=== PATIENT | male | born 1960 | race Caucasian/White ===

== ENCOUNTER 2024-03-08 18:57 | Emergency (ER) | payer BC ==
[2024-03-08 19:09] VITALS: TEMP 98.3
--- NOTE | 2024-03-08 19:18 | ED ---
Upper Extremity HPI - General Chief Complaint: Extremity Injury, Upper Stated Complaint: Trauma R hand Time Seen by Provider: 03/08/24 19:11 Source: patient, RN notes reviewed Mode of arrival: ambulatory Limitations: no limitations - History of Present Illness Initial Comments: This is a 63-year-old male who presents to the emergency department for an in jury to the right hand and wrist. Patient states that he was using an engine hoist to move a diesel engine, and one of the legs on the hoist was unsteady and caused the hoist to fall onto his right hand. He has 2 lacerations noted. Tetanus vaccine is up to date. Pain is localized to the right hand and wrist. Unable to move all of the fingers due to the pain and swelling. MD Complaint: Injury to:: right, wrist, hand - Related Data Previous Rx's Medication Instructions Recorded Ibuprofen [Motrin] 800 mg PO Q8H PRN #30 tab 03/08/24 Allergies Allergy/AdvReac Type Severity Reaction Status Date / Time No Known Allergies Allergy Verified 03/08/24 19:09 Review of Systems ROS Statement: Those systems with pertinent positive or pertinent negative responses have been documented in the HPI. ROS Other: All systems not noted in ROS Statement are negative. Past Medical History Past Medical History: Hyperlipidemia, Hypertension Additional Past Medical History / Comment(s): chronic knee pain, gout Past Surgical History: Orthopedic Surgery Past Psychological History: No Psychological Hx Reported Smoking Status: Never smoker Past Alcohol Use History: Occasional General Exam Limitations: no limitations General appearance: alert, in no apparent distress Head exam: Present: atraumatic, normocephalic, normal inspection Respiratory exam: Present: normal lung sounds bilaterally. Absent: respiratory distress, wheezes, rales, rhonchi, stridor Cardiovascular Exam: Present: regular rate, normal rhythm, normal heart sounds. Absent: systolic murmur, diastolic murmur, rubs, gallop, clicks Extremities exam: Present: other (Significant diffuse swelling to the right hand, particularly the area involving the palm. Range of motion of fingers 1 through 3 limited by pain and swelling.) Neurological exam: Present: alert, oriented X3, CN II-XII intact Psychiatric exam: Present: normal affect, normal mood Skin exam: Present: other (Laceration over the right thumb and to the volar aspect of the right palm.) Course Vital Signs 03/08/24 03/08/24 19:04 21:16 Temperature 98.3 F Pulse Rate 70 63 Respiratory 22 18 Rate Blood Pressure 167/82 159/82 O2 Sat by Pulse 97 100 Oximetry Procedures - Laceration Laceration #1 Consent Obtained: verbal consent Indication: laceration Site: hand Size (cm): 3 Description: linear Depth: simple, single layer Anesthetic Used: lidocaine 1% Anesthesia Technique: local infiltration Amount (mls): 4 Pre-repair: wound explored, irrigated extensively Type of Sutures: nylon Size of Sutures: 4-0 Number of Sutures: 3 Technique: simple, interrupted Laceration #2 Consent Obtained: verbal consent Indication: laceration Site: other (Right thumb) Size (cm): 4 Description: linear Depth: simple, single layer Anesthetic Used: lidocaine 1% Anesthesia Technique: local infiltration Amount (mls): 4 Pre-repair: wound explored, irrigated extensively Type of Sutures: nylon Size of Sutures: 4-0 Number of Sutures: 4 Technique: simple, interrupted Medical Decision Making - Medical Decision Making This is a 63 year old male who presents to the emergency department for an injury to the right hand. Was pt. sent in by a medical professional or institution? @ -No Did you speak to anyone other than the patient for history? @ -No Did you review nursing and triage notes? @ -Yes, and I agree, it is accurate with regards to the patient's symptoms. Were old charts reviewed? @ -No Differential Diagnosis? @ -Differential Musculoskeletal: Muscular strain, contusion, ligament sprain, fracture, arthritis, septic arthritis, bursitis, cellulitis, muscle spasm, nerve compression, DVT, arterial occlusion, herpes zoster, electrolyte abnormality, tumor.... This is not meant to be in all inclusive list EKG interpreted by me (3pts min.)? @ -Not obtained X-rays interpreted by me (1pt min.)? @ -X-ray of the right hand and wrist obtained. My interpretation identifies no acute fractures. CT interpreted by me (1pt min.)? @ -Not obtained U/S interpreted by me (1pt. min.)? @ -Not obtained What testing was considered but not performed? (CT, X-rays, U/S, labs)? Why? @ -None What meds were considered but not given? Why? @ -None Did you discuss the management of the patient with other professionals? @ -No Did you reconcile home meds? @ -No Was smoking cessation discussed for >3mins.? @ -No Was critical care preformed (if so, how long)? @ -No Were there social determinants of health that impacted care today? How? (Homelessness, low income, unemployed, alcoholism, drug addiction, transportation, low edu. Level, literacy, decrease access to med. care, [facility], rehab)? @ -No Was there de-escalation of care discussed even if they declined? (Discuss DNR or withdrawal of care, Hospice)? @ -No What co-morbidities impacted this encounter? (DM, HTN, Smoking, COPD, CAD, Cancer, CVA, Hep., AIDS, mental health diagnosis, sleep apnea, morbid obesity)? @ -None Was patient admitted / discharged? @ -Discharged. X-ray of the right hand and wrist obtained revealing prominent soft tissue swelling without any acute fractures. He had 2 lacerations, 1 on the palm of the hand and 1 on the right thumb that were both repaired with sutures. Tetanus vaccine is already up-to-date. Pain was controlled in the emergency department. He is advised to return in 7 to 10 days for suture removal. Prescription for ibuprofen provided. Also advised ice and elevation. Discussed with the patient that while there are not currently any identifiable fractures, sometimes this can be masked by the swelling. Advised that he may need repeat x-rays in the next week depending on how he progresses, to reevaluate for any fractures. Patient expresses understanding and was discharged home in stable condition. Case discussed with ED attending Dr. Colon. Return precautions reviewed in depth, the patient is instructed to return to the emergency department with any new, worsening, or concerning symptoms. Patient verbalized understanding. Undiagnosed new problem with uncertain prognosis? @ -None Drug Therapy requiring intensive monitoring for toxicity (Heparin, Nitro, Insulin, Cardizem)? @ -None Were any procedures done? @ -Laceration repair with sutures Diagnosis/symptom? @ -Crush injury to right hand, lacerations Acute, or Chronic, or Acute on Chronic? @ -Acute Uncomplicated (without systemic symptoms) or Complicated (systemic symptoms)? @ -Uncomplicated Side effects of treatment? @ -None Exacerbation, Progression, or Severe Exacerbation] @ -Not applicable Poses a threat to life or bodily function? @ -May limit use of the right hand for the mean time. - Radiology Data Radiology results: report reviewed, image reviewed Disposition Clinical Impression: Crushing injury of right hand, Laceration of hand Disposition: HOME SELF-CARE Instructions (If sedation given, give patient instructions): Care For Your Stitches (ED), Crush Injury (ED) Additional Instructions: Return to the emergency department with any new, worsening, or concerning symptoms and in 7-10 days for removal of the stitches. Alternate with ibuprofen and Tylenol as needed for pain relief. Apply ice and elevate the arm when possible. You may need repeat x-rays in about a week to further evaluate for any possible fractures that are not currently identifiable due to the swelling. Prescriptions: Ibuprofen [Motrin] 800 mg PO Q8H PRN #30 tab PRN Reason: Pain Is patient prescribed a controlled substance at d/c from ED?: No Referrals: Nonstaff,Physician [Primary Care Provider] - 1-2 days Time of Disposition: 21:02
[2024-03-08] MEDS: KETOROLAC 15 MG/ML 1 ML VIAL IVP STA ×2 (19:37→21:12)
[2024-03-08] MEDS: HYDROmorphone 1 MG/ML 1 ML SYRINGE IVP STA ×2 (19:38→21:12)
[2024-03-08] MEDS: LIDOCAINE 1% INJ 10MG/ML (20 ML MDV) SQ ONE (19:39)
--- NOTE | 2024-03-08 19:53 | XR ---
EXAMINATION TYPE: XR wrist complete 4 views RT, XR hand complete 3 views RT DATE OF EXAM: 03/08/2024 COMPARISON: NONE HISTORY: 63-year-old male pain and swelling after injury FINDINGS: Wrist: The radiocarpal and distal radial ulnar joint as well as mid carpal compartment appear intact. Mild d egenerative spurring first CMC joint. Corticated appearing ossific density dorsal carpus likely seque la of old injury. There is marked soft tissue swelling of the thenar eminence and radial aspect of th e wrist. No acute fracture, subluxation, dislocation seen. Hand: Soft tissue swelling mentioned above. No acute fracture, subluxation, dislocation seen. IMPRESSION (wrist and hand): Marked radial sided soft tissue swelling. No underlying acute osseous abnormality seen. [facility], , 03/08/2024 7:51 PM
[2024-03-08] MEDS: traMADol 50 MG STARTER PACK 3 TAB BTL PO STA (21:11)
[2024-03-08 21:17] VITALS: BP 159/82; PULSE 63; RESP 18
== END 2024-03-08 21:31 | disposition home or self-care (01) ==
LOC: EC 18:57
CPT/HCPCS: 12002; 96374; 96375; 96376; 99284

== ENCOUNTER 2024-04-29 13:28 | Observation (INO) | payer BC ==
[2024-04-29 14:34] LABS: Basophils % (A) 0 %; Eosinophils # (A) 0.2 k/uL (0-0.7); Eosinophils % (A) 2 %; HCT 31.8 % (39.0-53.0); HGB 10.7 gm/dL (13.0-17.5); Lymphocytes # (A) 0.5 k/uL (1.0-4.8); Lymphocytes % (A) 5 %; MCH 30.7 pg (25.0-35.0); MCHC 33.6 g/dL (31.0-37.0); MCV 91.5 fL (80.0-100.0); Mean Platelet Volume 8.5; Monocytes # (A) 0.6 k/uL (0-1.0); Monocytes % (A) 6 %; Neutrophils # (A) 8.8 k/uL (1.3-7.7); Neutrophils % (A) 86 %; Platelet Count 329 k/uL (150-450); RBC 3.48 m/uL (4.30-5.90); RDW 13.7 % (11.5-15.5); WBC 10.3 k/uL (3.8-10.6)
--- NOTE | 2024-04-29 14:42 | ED ---
Extremity Problem HPI - General Source: patient, EMS, RN notes reviewed Mode of arrival: EMS Limitations: physical limitation <Norman Ureña - Last Filed: 04/29/24 14:38> - General Source: patient, EMS, RN notes reviewed, old records reviewed Mode of arrival: EMS Limitations: physical limitation - History of Present Illness MD Complaint: extremity pain, extremity swelling -: hour(s) Location: right, knee History of Same: Yes -: Yes myalgia, Yes arthralgia Radiation: proximal, distal Severity scale (1-10): 10 Quality: stabbing Consistency: constant Improves with: nothing Worsens with: nothing Associated Symptoms: denies other symptoms <Willis Dubose - Last Filed: 05/05/24 22:01> - General Chief complaint: Extremity Problem,Nontraumatic Stated complaint: Poss Infection-Post OP Time Seen by Provider: 04/29/24 13:33 - History of Present Illness Initial comments: 63-year-old male presents to the emergency department with chief complaint of right leg pain, swelling and redness. Patient states that he had right total knee replacement done at [facility] last . He states he has been having subjective fevers, chills, cold sweats. He has had increasing leg pain, swelling or redness. He initially thought he was trying to wean off his medication that was causing his symptoms but symptoms worsen he has been followed by visiting nurses which are concerned about the increasing redness. He has a sealed dressing over the area. Patient states has become more difficult to move around. He states he generally does not feel well (Norman Ureña) This is a 63 male to the ER for severe leg pain right leg pain after right total knee replacement, patient having difficulty with pain control (Willis Dubose) - Related Data Home Medications Medication Instructions Recorded Confirmed Acetaminophen Tab [Tylenol] 500 - 1,000 mg PO Q6HR PRN 04/29/24 04/29/24 Aspirin EC [Ecotrin Low Dose] 81 mg PO BID 04/29/24 04/29/24 Atorvastatin [Lipitor] 40 mg PO DAILY 04/29/24 04/29/24 Docusate [Colace] 100 mg PO BID PRN 04/29/24 04/29/24 Levocetirizine Dihydrochloride 5 mg PO DAILY 04/29/24 04/29/24 [Xyzal] Losartan/Hydrochlorothiazide 1 tab PO DAILY 04/29/24 04/29/24 [Losartan-Hctz 100-12.5 mg Tab] Meloxicam [Mobic] 15 mg PO DAILY 04/29/24 04/29/24 Ondansetron [Zofran] 4 mg PO Q6H PRN 04/29/24 04/29/24 allopurinoL [Zyloprim] 300 mg PO DAILY 04/29/24 04/29/24 methocarbamoL [Robaxin-750] 750 mg PO Q8H PRN 04/29/24 04/29/24 traMADol HCL 50 mg PO Q6H PRN 04/29/24 04/29/24 Previous Rx's Medication Instructions Recorded Cephalexin [Keflex] 500 mg PO Q8HR 4 Days #12 cap 05/02/24 HYDROcodone/APAP 5-325MG [[place] 1 each PO Q6HR PRN 3 Days #12 tab 05/02/24 5-325] Allergies Allergy/AdvReac Type Severity Reaction Status Date / Time No Known Allergies Allergy Verified 04/29/24 13:45 Review of Systems ROS Other: All systems not noted in ROS Statement are negative. <Norman Ureña - Last Filed: 04/29/24 14:38> ROS Other: All systems not noted in ROS Statement are negative. <Willis Dubose - Last Filed: 05/05/24 22:01> ROS Statement: Those systems with pertinent positive or pertinent negative responses have been documented in the HPI. Past Medical History Past Medical History: Hyperlipidemia, Hypertension Additional Past Medical History / Comment(s): chronic knee pain, gout History of Any Multi-Drug Resistant Organisms: None Reported Past Surgical History: Orthopedic Surgery Past Psychological History: No Psychological Hx Reported Smoking Status: Never smoker Past Alcohol Use History: Occasional Past Drug Use History: None Reported <Norman Ureña - Last Filed: 04/29/24 14:38> - Past Family History Father Family Medical History: Cancer Additional Family Medical History / Comment(s): stomach CA Mother Family Medical History: Diabetes Mellitus <Willis Dubose - Last Filed: 05/05/24 22:01> General Exam Limitations: no limitations General appearance: alert, in no apparent distress Head exam: Present: atraumatic, normocephalic, normal inspection Eye exam: Present: normal appearance, PERRL, EOMI. Absent: scleral icterus, conjunctival injection, periorbital swelling ENT exam: Present: normal exam, normal oropharynx, mucous membranes moist Neck exam: Present: normal inspection, full ROM. Absent: tenderness, meningismus, lymphadenopathy Respiratory exam: Present: normal lung sounds bilaterally. Absent: respiratory distress, wheezes, rales, rhonchi, stridor Cardiovascular Exam: Present: regular rate, normal rhythm, normal heart sounds. Absent: systolic murmur, diastolic murmur, rubs, gallop, clicks Extremities exam: Present: other (Right leg there is significant diffuse swelling with surrounding erythema of the right knee extending distally and proximally. There is equal pedal pulses but increasing warmth of the right compared to the left leg) <Norman Ureña M - Last Filed: 04/29/24 14:38> General appearance: alert, in no apparent distress Head exam: Present: atraumatic, normocephalic, normal inspection Eye exam: Present: normal appearance, PERRL, EOMI. Absent: scleral icterus, conjunctival injection, periorbital swelling ENT exam: Present: normal exam, mucous membranes moist Neck exam: Present: normal inspection. Absent: tenderness, meningismus, lymphadenopathy Respiratory exam: Present: normal lung sounds bilaterally. Absent: respiratory distress, wheezes, rales, rhonchi, stridor Cardiovascular Exam: Present: regular rate, normal rhythm, normal heart sounds. Absent: systolic murmur, diastolic murmur, rubs, gallop, clicks GI/Abdominal exam: Present: soft, normal bowel sounds. Absent: distended, tenderness, guarding, rebound, rigid Extremities exam: Present: normal inspection, full ROM, normal capillary refill. Absent: tenderness, pedal edema, joint swelling, calf tenderness Back exam: Present: normal inspection Neurological exam: Present: alert, oriented X3, CN II-XII intact Psychiatric exam: Present: normal affect, normal mood Skin exam: Present: warm, dry, intact, normal color. Absent: rash <Willis Dubose B - Last Filed: 05/05/24 22:01> Course <Willis Dubose - Last Filed: 05/05/24 22:01> Vital Signs 04/29/24 04/29/24 04/29/24 13:38 14:45 17:13 Temperature 98 F 98.8 F 98.8 F Pulse Rate 82 79 81 Respiratory 18 18 19 Rate Blood Pressure 116/65 124/69 112/56 O2 Sat by Pulse 97 95 99 Oximetry - Reevaluation(s) Reevaluation #1: 04/29/24 16:36 Records reviewed (Willis Dubose) Reevaluation #2: 04/29/24 16:36 Patient has difficult to control pain (Willis Dubose) Reevaluation #3: 04/29/24 16:36 Patient informed of results and questions answered (Willis Dubose) Reevaluation #4: Was pt. sent in by a medical professional or institution (, [facility], FUNDRAISING MANAGER, urgent care, hospital, or penitentiary...) When possible be specific @ -no Did you speak to anyone other than the patient for history (EMS, parent, family, police, friend...)? What history was obtained from this source @ -no Did you review nursing and triage notes (agree or disagree)? Why? @ -agree Are old charts reviewed (outside hosp., previous admission, EMS record, old EKG, old radiological studies, urgent care reports/EKG's, penitentiary records)? Repo rt findings @ -yes Differential Diagnosis (chest pain, altered mental status, abdominal pain women, abdominal pain men, vaginal bleeding, weakness, fever, dyspnea, syncope, headache, dizziness, GI bleed, back pain, seizure, CVA, palpatations, mental health, musculoskeletal)? @ -prior EKG interpreted by me (3pts min.). @ -yes X-rays interpreted by me (1pt min.). @ -yes negative for acute disease CT interpreted by me (1pt min.). @ -no U/S interpreted by me (1pt. min.). @ -yes Negative for acute disease What testing was considered but not performed or refused? (CT, X-rays, U/S, labs)? Why? @ -none What meds were considered but not given or refused? Why? @ -none Did you discuss the management of the patient with other professionals (professionals i.e. Dr., PA, FUNDRAISING MANAGER, lab, RT, psych nurse, social sciences research scientist, oracle soa architect, teacher, immigration officer, bottle caser)? Give summary @ -no Was smoking cessation discussed for >3mins.? @ -no Was critical care preformed (if so, how long)? @ -no Were there social determinants of health that impacted care today? How? (Homelessness, low income, unemployed, alcoholism, drug addiction, transportation, low edu. Level, literacy, decrease access to med. care, detention, rehab)? @ -none Was there de-escalation of care discussed even if they declined (Discuss DNR or withdrawal of care, Hospice)? DNR status @ -no What co-morbidities impacted this encounter? (DM, HTN, Smoking, COPD, CAD, Cancer, CVA, ARF, Chemo, Hep., AIDS, mental health diagnosis, sleep apnea, morbid obesity)? @ -none Was patient admitted / discharged? Hospital course, mention meds given and route, prescriptions, significant lab abnormalities, going to OR and other pertinent info. @ - 63 male to be admitted for severe postoperative pain need for knee rehabilitation and rehabilitation services in the postop period with uncontrolled knee pain, patient is not opiate jack and is at times having withdrawal symptoms Admitted Undiagnosed new problem with uncertain prognosis? @ -no Drug Therapy requiring intensive monitoring for toxicity (Heparin, Nitro, Insulin, Cardizem)? @ -no Were any procedures done? @ -no Diagnosis/symptom? @ -Postoperative pain Acute, or Chronic, or Acute on Chronic? @ -Acute Uncomplicated (without systemic symptoms) or Complicated (systemic symptoms)? @ -Complicated Side effects of treatment? @ -no Exacerbation, Progression, or Severe Exacerbation? @ -exacerbation Poses a threat to life or bodily function? How? (Chest pain, USA, CT, pneumonia, PE, COPD, DKA, ARF, appy, cholecystitis, CVA, Diverticulitis, Homicidal, Suicidal, threat to staff... and all critical care pts) @ -yes the operative pain and infection (Willis Dubose) - Consultations Consultation #1: Spoke with [facility] who agrees to admit this patient (Willis Dubose) Medical Decision Making - Lab Data Result diagrams: 04/29/24 14:20 <Norman Ureña - Last Filed: 04/29/24 14:38> - Lab Data Result diagrams: 05/02/24 03:05 05/02/24 03:05 - Radiology Data Radiology results: report reviewed (XR right knee and ultrasound is negative for acute disease), image reviewed <Willis Dubose - Last Filed: 05/05/24 22:01> - Medical Decision Making 63 male to be admitted for severe postoperative pain need for knee rehabilitation and rehabilitation services in the postop period with uncontrolled knee pain, patient is not opiate jack and is at times having withdrawal symptoms (Willis Dubose) - Lab Data Lab Results 04/29/24 04/29/24 04/29/24 Range/Units 14:20 14:20 14:20 WBC 10.3 (3.8-10.6) k/uL RBC 3.48 L (4.30-5.90) m/uL Hgb 10.7 L (13.0-17.5) gm/dL Hct 31.8 L (39.0-53.0) % MCV 91.5 (80.0-100.0) fL MCH 30.7 (25.0-35.0) pg MCHC 33.6 (31.0-37.0) g/dL RDW 13.7 (11.5-15.5) % Plt Count 329 (150-450) k/uL MPV 8.5 Neutrophils % 86 % Lymphocytes % 5 % Monocytes % 6 % Eosinophils % 2 % Basophils % 0 % Neutrophils # 8.8 H (1.3-7.7) k/uL Lymphocytes # 0.5 L (1.0-4.8) k/uL Monocytes # 0.6 (0-1.0) k/uL Eosinophils # 0.2 (0-0.7) k/uL Basophils # 0.0 (0-0.2) k/uL Sodium 137 (137-145) mmol/L Potassium 3.8 (3.5-5.1) mmol/L Chloride 101 (98-107) mmol/L Carbon Dioxide 25 (22-30) mmol/L Anion Gap 11 mmol/L BUN 25 H (9-20) mg/dL Creatinine 1.04 (0.66-1.25) mg/dL Est GFR (CKD-EPI)AfAm 90 (>60 ml/min/1.73 sqM) Est GFR (CKD-EPI)NonAf 78 (>60 ml/min/1.73 sqM) Glucose 115 H (74-99) mg/dL Plasma Lactic Acid Hubert 1.6 (0.7-2.0) mmol/L Calcium 9.3 (8.4-10.2) mg/dL Total Bilirubin 1.1 (0.2-1.3) mg/dL AST 32 (17-59) U/L ALT 29 (4-49) U/L Alkaline Phosphatase 61 (38-126) U/L Total Protein 6.6 (6.3-8.2) g/dL Albumin 3.8 (3.5-5.0) g/dL Disposition <Norman Ureña - Last Filed: 04/29/24 14:38> Is patient prescribed a controlled substance at d/c from ED?: No <Willis Dubose - Last Filed: 05/05/24 22:01> Clinical Impression: Aftercare following right knee joint replacement surgery, Postoperative pain Disposition: ADMITTED IP TO THIS HOSP Condition: Fair
[2024-04-29 15:05] LABS: ALT 29 U/L (4-49); AST 32 U/L (17-59); African American GFR (CKD) 90 (>60 ml/min/1.73 sqM); Albumin 3.8 g/dL (3.5-5.0); Alkaline Phosphatase 61 U/L (38-126); Anion Gap 11 mmol/L; Blood Urea Nitrogen 25 mg/dL (9-20); Calcium 9.3 mg/dL (8.4-10.2); Carbon Dioxide 25 mmol/L (22-30); Chloride 101 mmol/L (98-107); Glucose 115 mg/dL (74-99); Non-African American GFR(CKD) 78 (>60 ml/min/1.73 sqM); Potassium 3.8 mmol/L (3.5-5.1); Sodium 137 mmol/L (137-145); Total Bilirubin 1.1 mg/dL (0.2-1.3); Total Protein 6.6 g/dL (6.3-8.2)
--- NOTE | 2024-04-29 15:16 | XR ---
EXAMINATION TYPE: XR knee limited RT DATE OF EXAM: 04/29/2024 2:53 PM COMPARISON: None CLINICAL INDICATION: Male, 63 years old with history of pain; PHH, pain TECHNIQUE: XR knee limited RT 2 views submitted. FINDINGS: Status post total knee arthroplasty changes with hardware in appropriate alignment and in tact. No evidence of fracture. There is soft tissue swelling in the prepatellar space. There remains scattered lucent bubbles in the joint itself. IMPRESSION: Prepatellar soft tissue edema with gas in the suprapatellar recess. Correlate for signs and symptoms of infection. Status post total knee arthroplasty changes with hardware intact and appropriate alignment. No fractu res identified. [facility], Workstation: [facility], 04/29/2024 3:13 PM
--- NOTE | 2024-04-29 15:49 | US ---
EXAMINATION TYPE: US venous doppler duplex LE RT DATE OF EXAM: 04/29/2024 3:33 PM COMPARISON: NONE CLINICAL INDICATION: Male, 63 years old with history of pain; Right leg pain s/p right total knee, Pa in TECHNIQUE: The lower extremity deep venous system is examined utilizing real time linear array sonog jose with graded compression, color doppler sonography, and spectral doppler. SIDE PERFORMED: Right FINDINGS: VESSELS IMAGED: Common Femoral Vein Deep Femoral Vein Greater Saphenous Vein * Femoral Vein Popliteal Vein Small Saphenous Vein * Proximal Calf Veins (* superficial vessels) Right Leg: Negative for DVT, Color Doppler imaging shows patency of the vessels. Spectral waveforms are within normal limits. IMPRESSION: No ultrasound evidence for deep venous thrombosis. [facility], Workstation: [facility], 04/29/2024 3:46 PM
[2024-04-29] MEDS: HYDROmorphone 0.5 MG/0.5 ML SYRINGE IVP STA (16:23)
[2024-04-29] MEDS ORDERED: NALOXONE 0.4 MG/ML 1 ML VIAL IV PRN (16:32)
[2024-04-29] MEDS ORDERED: ONDANSETRON 4 MG/2 ML VIAL IVP PRN (16:32)
[2024-04-29] MEDS: HYDROmorphone 1 MG/ML 1 ML SYRINGE IVP STA (16:33)
[2024-04-29] MEDS: KETOROLAC 15 MG/ML 1 ML VIAL IVP STA (16:34)
[2024-04-29] MEDS: SODIUM CHLORIDE 0.9% 1,000 ML IV SCH (17:14)
[2024-04-29] MEDS: ACETAMINOPHEN IV (For NPO) 1,000 MG in EMPTY BAG 1 BAG IVPB STA (18:05)
[2024-04-29] MEDS: HYDROmorphone 1 MG/ML 1 ML SYRINGE IVP PRN (21:02)
[2024-04-30] MEDS: KETOROLAC 15 MG/ML 1 ML VIAL IVP PRN (00:13)
[2024-04-30 08:54] LABS: Basophils # (A) 0.03 X 10*3/uL (0.00-0.10); Basophils % (A) 0.4 %; Eosinophils # (A) 0.45 X 10*3/uL (0.04-0.35); Eosinophils % (A) 5.3 %; HCT 26.8 % (39.6-50.0); HGB 8.8 g/dL (13.0-17.0); Lymphocytes % (A) 9.5 %; MCH 30.2 pg (27.0-32.0); MCHC 32.8 g/dL (32.0-37.0); MCV 92.1 FL (80.0-97.0); Mean Platelet Volume 10.6 FL (9.5-12.2); Monocytes # (A) 1.37 X 10*3/uL (0.20-1.00); Monocytes % (A) 16.3 %; NRBC Per 100 WBC 0 X 10*3/uL (0.00-0.01); Neutrophils % (A) 67.7 %; Platelet Count 312 X 10*3/uL (140-440); RBC 2.91 X 10*6/uL (4.40-5.60); RDW 14.4 % (11.5-14.5); WBC 8.42 X 10*3/uL (4.50-10.00)
[2024-04-30 09:25] LABS: ALT 23 U/L (10-49); AST 24 U/L (14-35); Albumin 3.2 g/dL (3.8-4.9); Albumin/Globulin Ratio 1.39 Ratio (1.60-3.17); Alkaline Phosphatase 44 U/L (41-126); BUN/Creat Ratio 23.31 Ratio (12.00-20.00); Blood Urea Nitrogen 30.3 mg/dL (9.0-27.0); Calcium 8.3 mg/dL (8.7-10.3); Carbon Dioxide 24.2 mmol/L (21.6-31.8); Chloride 102 mmol/L (96-109); Globulin 2.3 g/dL (1.6-3.3); Glucose 112 mg/dL (70-110); Lipase 13 U/L (14-60); Magnesium 2.3 mg/dL (1.5-2.4); Phosphorus 4.7 mg/dL (2.4-5.1); Potassium 4.2 mmol/L (3.5-5.5); Sodium 137 mmol/L (135-145); Total Bilirubin 0.4 mg/dL (0.3-1.2); Total Protein 5.5 g/dL (6.2-8.2)
[2024-04-30] MEDS ORDERED: DOCUSATE 100 MG CAP PO PRN (09:51)
[2024-04-30] MEDS: HYDROmorphone 1 MG/ML 1 ML SYRINGE IVP STA (11:29)
[2024-04-30] MEDS: HYDROmorphone 1 MG/ML 1 ML SYRINGE IVP PRN (12:44)
--- NOTE | 2024-04-30 15:45 | P.PAINPG ---
Objective - Vital Signs Vital signs: Vital Signs Temp 98.3 F 04/30/24 14:37 Pulse 76 04/30/24 14:37 Resp 18 04/30/24 14:37 BP 123/75 04/30/24 14:37 Pulse Ox 98 04/30/24 14:37 FiO2 Intake & Output 04/29/24 04/30/24 04/30/24 18:59 06:59 18:59 Weight 88.451 kg Other: Voiding Method Toilet # Voids 0 1 1 # Bowel Movements 1 - Labs CBC & Chem 7: 04/30/24 02:34 04/30/24 02:34 Labs: Abnormal Lab Results - Last 24 Hours (Table) 04/30/24 04/30/24 Range/Units 02:34 02:34 RBC 2.91 L (4.40-5.60) X 10*6/uL Hgb 8.8 L (13.0-17.0) g/dL Hct 26.8 L (39.6-50.0) % Immature Gran # 0.07 H (0.00-0.04) X 10*3/uL Lymphocytes # 0.80 L (0.90-5.00) X 10*3/uL Monocytes # 1.37 H (0.20-1.00) X 10*3/uL Eosinophils # 0.45 H (0.04-0.35) X 10*3/uL BUN 30.3 H (9.0-27.0) mg/dL BUN/Creatinine Ratio 23.31 H (12.00-20.00) Ratio Glucose 112 H (70-110) mg/dL Calcium 8.3 L (8.7-10.3) mg/dL Total Protein 5.5 L (6.2-8.2) g/dL Albumin 3.2 L (3.8-4.9) g/dL Albumin/Globulin Ratio 1.39 L (1.60-3.17) Ratio Lipase 13 L (14-60) U/L PQRS Measure Charge Sheet Comment: HISTORY OF PRESENT ILLNESS: A 63 yr old male w and family members at side presents today w severe acute R knee pain secondary to R total knee replacement approximately 1 wk ago for evaluation. Pt states pain level is provoked at 8 /10 in intensity, constant, localized in the R knee, dull/ achy in character without shooting pain. Pain is provoked by weight bearing. Pain is alleviated by medications (Dilaudid IVP, Toradol IVP, Tyl PO), manual massage, repositioning and rest . PMH: OA, Hyperlipidemia, HTN, Gout PSH: R Knee Replacement (Apr 2024) SH: Never smoker, Occ ETOH use, No illicit drug use FH: Fa- Stomach CA. Mo- DM All: See list Meds: See list REVIEW OF ORGAN SYSTEMS: CONSTITUTIONAL: No fevers or chills. No recent weight loss. NEUROLOGICAL: + numbness and tingling along the distal extremities. No seizure disorders or headaches. MUSCULOSKELETAL: + pain PSYCHIATRIC: Denies current depression or suicidal thoughts. Physical Examinations : Constitutional : Cooperative , not in acute distress . Neurologic : Cranial nerve II to XII intact. No focal neurological deficits. Psychiatric : alert & oriented x 3. Matching mood & appropriate affect. Judgment & insight intact. Musculoskeletal : +R knee erythema, 2+ pitting edema, vertical incisional scar w dressing Cervical Spine Motor strength in the deltoid and biceps: Normal right side. Normal Left side Motor strength biceps and the wrist extensors: Normal right side . Normal left side Motor strength in the triceps muscle: Normal right side. Normal left side Deep tendon reflexes: Normal at the biceps. Normal at Brachioradialis. Normal at triceps Vertebral body tenderness to deep palpation over Cervical facet loading test: positive bilaterally Spurling test: positive bilaterally Neck distraction test: positive bilaterally Otilia sign: positive bilaterally Lumbar spine Motor strength lower extremities ,thigh and legs 5/5 Right side , 5/5 Left side Deep tendon reflexes : Normal Knee Jerk. Normal Ankle Jerk Vertebral body tenderness over Tolbert Test positive Lumbar facet Loading Test: positive Right / positive Left Range of motion of the lumbar spine Flexion 30 degrees, extension 10 degrees Straight Leg Raise test: Left/ Right positive at degrees Alex test: positive right / positive left. Severe tenderness over the Sacroiliac joint on the Right / Left sides Gaenslen test: positive bilaterally Seated flexion test: positive bilaterally. Sacral spine : Severe tenderness over the Sacroiliac joint: right side / left side Range of motion: Flexion of the lumbar spine <60 degrees Range of motion: Extension of the lumbar spine <20 degrees Gaenslen's Test positive Alex test: positive right side / left side Thigh Thrust Test Sacral Thrust Test Imaging: X ray R knee from 04/29/24 reviewed- Neg for fracture RLE Venous doppler from 04/29/24 reviewed- Neg for DVT Assessment/ Plan : R knee pain secondary to recent R total knee replacement Recommendation of medication management. Continue RLE elevation to reduce swelling and Dilaudid IVP q3h prn for severe pain, Toradol 15mg IVP q6h prn moderate pain and Tyl 650mg PO q6h prn mild pain. All questions answered. I have spent greater than 30 minutes on patient care today. Dr Dennis was available by phone for the evaluation of this patient. The time was used to review the medical records including relevant urine studies and Prescription history (MAPs), review of the available imaging, evaluation and examination of the patient, coordination of care with the medical staff and if applicable referring physicians, as well as creation of the medical record - Pain Location Right Knee Non-Pharmacological Interventions: Darkened Room, Distraction, Elevation, Ice Pharmacological Interventions: PRN Medication PQRS Narrative: Blood Pressure [Left Arm] 123/75 Blood Pressure [Supine] 104/61 Blood Pressure 112/56 Pain Intensity [Right Knee] 6 Pain Intensity 5 Pain Scale Used Numeric (1 - 10) Scale Used Numeric (1 - 10) Home Medications: Ambulatory Orders Acetaminophen Tab [Tylenol Tab] 500 - 1,000 mg PO Q6HR PRN 04/29/24 Aspirin EC [Ecotrin Low Dose] 81 mg PO BID 04/29/24 Atorvastatin [Lipitor] 40 mg PO DAILY 04/29/24 Docusate [Colace] 100 mg PO BID PRN 04/29/24 Levocetirizine Dihydrochloride [Xyzal] 5 mg PO DAILY 04/29/24 Losartan/Hydrochlorothiazide [Losartan-Hctz 100-12.5 mg Tab] 1 tab PO DAILY 04/29/24 Meloxicam [Mobic] 15 mg PO DAILY 04/29/24 Ondansetron [Zofran] 4 mg PO Q6H PRN 04/29/24 allopurinoL [Zyloprim] 300 mg PO DAILY 04/29/24 methocarbamoL [Robaxin-750] 750 mg PO Q8H PRN 04/29/24 oxyCODONE HCL [OxyIR] 5 mg PO Q4H PRN 04/29/24 traMADol HCL 50 mg PO Q6H PRN 04/29/24 Controlled Substance Measures - Controlled Substance Measures Is patient prescribed a controlled substance at discharge?: No
[2024-04-30] MEDS: HEPARIN SODIUM,PORCINE 5,000 UNIT/ML 1 ML VIAL SQ SCH (16:42)
--- NOTE | 2024-04-30 22:48 | P.HPIM ---
History of Present Illness H&P Date: 04/30/24 Chief Complaint: Right knee pain Patient is a 63-year-old male with a known history of hypertension, hyperlipidemia and chronic knee pain and history of gout. Patient had right total knee arthroplasty on last at [facility]. Patient has been having right knee pain since after surgery. He was discharged home with home care and home PT. Patient has been having increased pain, subjective fevers and cold sweats and chills. He also noticed to have increased redness and swelling of the right knee and lower extremity. Patient tried to wean off his pain medications at home initially but symptoms could not be controlled. Patient was seen by home visiting nurse and concern for increased redness and swelling and recommended to go to ER. Denied any soaking or discharge from the dressing. No complaints of chest pain or shortness of breath. No cough or sputum production. On admission blood pressure 116/65 pulse 82 respiration 18 and pulse ox 92% on room air. Patient has been afebrile. X-ray of the right knee showed prepatellar soft tissue edema with gas in the suprapatellar recess. Correlate for signs and symptoms of infection. Status post total knee arthroplasty changes with hardware intact and appropriate alignment. No fractures identified. Right lower EXTR duplex scan is negative for DVT. Laboratory data showed WBC 10.3 hemoglobin 10.7 MCV 91.5 platelets 329 neutrophils 8.8 Sodium 137 potassium 3.8 chloride 101 bicarb is 25 BUN 25 creatinine 1.04 and blood sugar is 115 and calcium 9.3 lactic acid 1.6 liver enzymes are not elevated. Patient was started on antibiotics in the form of cefazolin in the ER. Review of Systems Constitutional: Patient complains of subjective fevers and chills and cold sweats s . No generalized weakness or weight loss. Abdomen: Patient denied nausea vomiting and diarrhea and abdominal pain. Cardiovascular: Patient denies any chest pain or short of breath no pa lpitations. Respiratory: patient denied any cough or sputum production. No shortness of breath Neurologic: Patient denied any numbness or tingling. no headache. Musculoskeletal: Patient complains of right knee pain swelling and redness Psychiatric: Negative Endocrine: No heat or cold intolerance. No recent weight gain. Genitourinary: No dysuria or hematuria. All other 14 point ROS negative except the above Past Medical History Past Medical History: Hyperlipidemia, Hypertension Additional Past Medical History / Comment(s): chronic knee pain, gout History of Any Multi-Drug Resistant Organisms: None Reported Past Surgical History: Orthopedic Surgery Additional Past Surgical History / Comment(s): recent right knee replacement Smoking Status: Never smoker - Past Family History Father Family Medical History: Cancer Additional Family Medical History / Comment(s): stomach CA Mother Family Medical History: Diabetes Mellitus Medications and Allergies Home Medications Medication Instructions Recorded Confirmed Type Acetaminophen Tab [Tylenol Tab] 500 - 1,000 mg PO Q6HR PRN 04/29/24 04/29/24 History Aspirin EC [Ecotrin Low Dose] 81 mg PO BID 04/29/24 04/29/24 History Atorvastatin [Lipitor] 40 mg PO DAILY 04/29/24 04/29/24 History Docusate [Colace] 100 mg PO BID PRN 04/29/24 04/29/24 History Levocetirizine Dihydrochloride 5 mg PO DAILY 04/29/24 04/29/24 History [Xyzal] Losartan/Hydrochlorothiazide 1 tab PO DAILY 04/29/24 04/29/24 History [Losartan-Hctz 100-12.5 mg Tab] Meloxicam [Mobic] 15 mg PO DAILY 04/29/24 04/29/24 History Ondansetron [Zofran] 4 mg PO Q6H PRN 04/29/24 04/29/24 History allopurinoL [Zyloprim] 300 mg PO DAILY 04/29/24 04/29/24 History methocarbamoL [Robaxin-750] 750 mg PO Q8H PRN 04/29/24 04/29/24 History oxyCODONE HCL [OxyIR] 5 mg PO Q4H PRN 04/29/24 04/29/24 History traMADol HCL 50 mg PO Q6H PRN 04/29/24 04/29/24 History Allergies Allergy/AdvReac Type Severity Reaction Status Date / Time No Known Allergies Allergy Verified 04/29/24 13:45 Physical Exam Vitals: Vital Signs Temp Pulse Pulse Resp BP BP BP 04/30/24 06:49 97.9 F 72 17 110/66 04/30/24 01:03 98.3 F 77 17 104/61 04/29/24 21:58 79 17 04/29/24 18:54 98.5 F 79 17 106/60 04/29/24 17:13 98.8 F 81 19 112/56 04/29/24 14:45 98.8 F 79 18 124/69 04/29/24 13:38 98 F 82 18 116/65 Pulse Ox 04/30/24 06:49 99 04/30/24 01:03 96 04/29/24 21:58 04/29/24 18:54 96 04/29/24 17:13 99 04/29/24 14:45 95 04/29/24 13:38 97 Intake and Output 04/29/24 04/30/24 04/30/24 22:59 06:59 14:59 Other: Voiding Method Toilet # Voids 0 1 Weight 88.451 kg PHYSICAL EXAMINATION: Patient is lying in the bed mild distress due to pain, awake alert and oriented.. HEENT: Normocephalic. Neck is supple. Pupils reactive. Nostrils clear. Oral cavity is moist. Neck reveals no JVD, carotid bruits, or thyromegaly. CHEST EXAMINATION: Trachea is central. Symmetrical expansion. Lung dobson clear to auscultation and percussion. CARDIAC: Normal S1, S2 with no gallops. No murmurs ABDOMEN: Soft. Bowel sounds normal. No organomegaly. No abdominal bruits. Extremities: Right lower extremity swelling.. No clubbing or cyanosis Neurologically awake, alert, oriented x3 with well-coordinated movements. No focal deficits noted Skin: No rash or skin lesions. Psychiatric: Coperative. Nonsuicidal, anxious. Musculoskeletal: Right knee swelling and redness around the surgical site. Mild tenderness. Bandage intact. Results CBC & Chem 7: 04/30/24 02:34 04/30/24 02:34 Labs: Abnormal Lab Results - Last 24 Hours (Table) 04/29/24 04/29/24 04/30/24 Range/Units 14:20 14:20 02:34 RBC 3.48 L 2.91 L (4.30-5.90) m/uL Hgb 10.7 L 8.8 L (13.0-17.5) gm/dL Hct 31.8 L 26.8 L (39.0-53.0) % Immature Gran # 0.07 H (0.00-0.04) X 10*3/uL Neutrophils # 8.8 H (1.3-7.7) k/uL Lymphocytes # 0.5 L 0.80 L (1.0-4.8) k/uL Monocytes # 1.37 H (0.20-1.00) X 10*3/uL Eosinophils # 0.45 H (0.04-0.35) X 10*3/uL BUN 25 H (9-20) mg/dL BUN/Creatinine Ratio (12.00-20.00) Ratio Glucose 115 H (74-99) mg/dL Calcium (8.7-10.3) mg/dL Total Protein (6.2-8.2) g/dL Albumin (3.8-4.9) g/dL Albumin/Globulin Ratio (1.60-3.17) Ratio Lipase (14-60) U/L 04/30/24 Range/Units 02:34 RBC (4.30-5.90) m/uL Hgb (13.0-17.5) gm/dL Hct (39.0-53.0) % Immature Gran # (0.00-0.04) X 10*3/uL Neutrophils # (1.3-7.7) k/uL Lymphocytes # (1.0-4.8) k/uL Monocytes # (0.20-1.00) X 10*3/uL Eosinophils # (0.04-0.35) X 10*3/uL BUN 30.3 H (9-20) mg/dL BUN/Creatinine Ratio 23.31 H (12.00-20.00) Ratio Glucose 112 H (74-99) mg/dL Calcium 8.3 L (8.7-10.3) mg/dL Total Protein 5.5 L (6.2-8.2) g/dL Albumin 3.2 L (3.8-4.9) g/dL Albumin/Globulin Ratio 1.39 L (1.60-3.17) Ratio Lipase 13 L (14-60) U/L Thrombosis Risk Factor Assmnt - DVT/VTE Prophylaxis DVT/VTE Prophylaxis: Pharmacologic Prophylaxis ordered Assessment and Plan Assessment: Worsening right knee pain and swelling status post total arthroplasty on 04/24/2024 at [facility]. Likely due to joint effusion with soft tissue edema. Septic arthritis cannot be ruled out at this time. Otherwise patient has been afebrile and has no leukocytosis. Chronic right knee pain Hypertension Hyperlipidemia History of gout Normocytic anemia with hemoglobin 10.7 on admission DVT prophylaxis heparin subcu Plan: Patient will be continued on IV hydration with normal saline at 75 cc per hour. Continue with cefazolin. Follow-up blood cultures. Continue with leg elevation and pain management with Dilaudid, Toradol and Tylenol. Blood pressure medications on hold. Start back on home medications. Pain management service and orthopedic surgery will be consulted. Follow-up closely. Discussed with the patient his family at bedside in detail. Time with Patient: Greater than 30
[2024-05-01] MEDS: allopurinoL 300 MG TAB PO SCH (07:55)
[2024-05-01] MEDS: ATORVASTATIN 40 MG TAB PO SCH (07:55)
--- NOTE | 2024-05-01 08:21 | P.CNOR ---
History of Present Illness - [facility] Consult date: 05/01/24 Consult reason: joint pain (Right knee pain, history of recent total knee arthroplasty) History of present illness: Patient is a 63-year-old male who was admitted to [facility] on 04/29/2024 due to increase in pain and swelling to his right knee. Patient has recently undergone a total knee arthroplasty on 04/25/2024 by a orthopedic surgeon at [facility]. Patient was discharged same day, he states that the first few days were going pretty well. As he got into the weekend and on Sunday he had increasing pain, swelling. Patient has been taking Oxy IR at home with minimal relief, he was taking Tylenol in between. Patient is normally prescribed tramadol which she was not taken. Patient was prescribed 2 days of oral antibiotics after discharge from his total knee replacement. He has been utilizing aspirin 81 mg twice a day for DVT prophylaxis. Since being in the hospital he has been evaluated by internal medicine and pain management. Patient currently is on IV Dilaudid and IV Toradol. Patient's white count has been normal since being in the hospital, he has been not running any fevers. Blood cultures were taken when the patient came into the hospital, those are sti ll pending. Patient was evaluated today at bedside, his is present also. He is resting comfortably in his hospital bed. He notes generalized pain surrounding the knee, there is a noticeable amount of swelling and bruising present. There is a Optifoam dressing in place. Patient has been up and ambulating to the bathroom he states, he states this morning felt better than the last few days have. Patient has been on IV antibiotics also since being in the hospital. Like stated above, blood cultures are pending. Patient denies any fevers or chills at this time. He states while at home he was having some fever and chills, had a difficult time differentiating if this was caused by the pain he was having when trying to ambulate. Patient has no other orthopedic complaints at this time. He denies headaches, lightheadedness, chest pain or shortness of breath Review of Systems Constitutional: Reports as per HPI Past Medical History Past Medical History: Hyperlipidemia, Hypertension Additional Past Medical History / Comment(s): chronic knee pain, gout History of Any Multi-Drug Resistant Organisms: None Reported Past Surgical History: Orthopedic Surgery Additional Past Surgical History / Comment(s): recent right knee replacement Smoking Status: Never smoker - Past Family History Father Family Medical History: Cancer Additional Family Medical History / Comment(s): stomach CA Mother Family Medical History: Diabetes Mellitus Medications and Allergies Home Medications Medication Instructions Recorded Confirmed Type Acetaminophen Tab [Tylenol Tab] 500 - 1,000 mg PO Q6HR PRN 04/29/24 04/29/24 History Aspirin EC [Ecotrin Low Dose] 81 mg PO BID 04/29/24 04/29/24 History Atorvastatin [Lipitor] 40 mg PO DAILY 04/29/24 04/29/24 History Docusate [Colace] 100 mg PO BID PRN 04/29/24 04/29/24 History Levocetirizine Dihydrochloride 5 mg PO DAILY 04/29/24 04/29/24 History [Xyzal] Losartan/Hydrochlorothiazide 1 tab PO DAILY 04/29/24 04/29/24 History [Losartan-Hctz 100-12.5 mg Tab] Meloxicam [Mobic] 15 mg PO DAILY 04/29/24 04/29/24 History Ondansetron [Zofran] 4 mg PO Q6H PRN 04/29/24 04/29/24 History allopurinoL [Zyloprim] 300 mg PO DAILY 04/29/24 04/29/24 History methocarbamoL [Robaxin-750] 750 mg PO Q8H PRN 04/29/24 04/29/24 History oxyCODONE HCL [OxyIR] 5 mg PO Q4H PRN 04/29/24 04/29/24 History traMADol HCL 50 mg PO Q6H PRN 04/29/24 04/29/24 History Allergies Allergy/AdvReac Type Severity Reaction Status Date / Time No Known Allergies Allergy Verified 04/29/24 13:45 Physical Examination Right lower extremity: Optifoam dressing was removed, well-healing anterior incision over the front of the knee, there is skin glue present. There is notable swelling and ecchymosis surrounding the knee. There is no drainage appreciated, there is no obvious fluctuance appreciated on exam there is swelling noted in the entire right lower extremity when compared to the left lower extremity Patient's calf is soft, there is no tenderness with palpation, he has a negative Homans test Logroll maneuver reproduces no groin pain, the compartments to the upper leg both anterior and posterior soft and compressible Passive range of motion of the knee, extending to 0 and flexion to about 40 degrees reproduces minimal discomfort. Plantarflexion, dorsiflexion, EHL, FHL are intact Sensory exam to light touch throughout the extremity is intact Dorsalis pedis pulses 2+ Results - Labs Labs: Abnormal Lab Results - Last 24 Hours (Table) 04/30/24 04/30/24 Range/Units 02:34 02:34 RBC 2.91 L (4.40-5.60) X 10*6/uL Hgb 8.8 L (13.0-17.0) g/dL Hct 26.8 L (39.6-50.0) % Immature Gran # 0.07 H (0.00-0.04) X 10*3/uL Lymphocytes # 0.80 L (0.90-5.00) X 10*3/uL Monocytes # 1.37 H (0.20-1.00) X 10*3/uL Eosinophils # 0.45 H (0.04-0.35) X 10*3/uL BUN 30.3 H (9.0-27.0) mg/dL BUN/Creatinine Ratio 23.31 H (12.00-20.00) Ratio Glucose 112 H (70-110) mg/dL Calcium 8.3 L (8.7-10.3) mg/dL Total Protein 5.5 L (6.2-8.2) g/dL Albumin 3.2 L (3.8-4.9) g/dL Albumin/Globulin Ratio 1.39 L (1.60-3.17) Ratio Lipase 13 L (14-60) U/L Microbiology - Last 24 Hours (Table) 04/29/24 14:20 Blood Culture - Preliminary Blood H & H 04/29/24 04/30/24 Range/Units 14:20 02:34 Hgb 10.7 L 8.8 L (13.0-17.5) gm/dL Hct 31.8 L 26.8 L (39.0-53.0) % Result Diagrams: 04/30/24 02:34 04/30/24 02:34 - Diagnostic results Hip x-ray: report reviewed, image reviewed (AP and lateral x-rays were reviewed of the right knee. No acute fractures or dislocations. Total knee arthroplasty components appear stable, no obvious lucencies) Assessment and Plan Assessment: Right knee pain Postop day #6 status post right total knee arthroplasty Plan: I was able to discuss the case, this to include both physical exam findings and imaging studies and my attending Dr. Mosquera. No emergent orthopedic surgical intervention recommended at this time Low concern for infection involving the right knee, patient has a normal white count, he is afebrile. The physical exam findings are quite normal for a patient that is 6 days postoperative from a knee replacement I feel patient's pain management after the surgery has not been adequate, he was taking like stated prior oxycodone IR along with Tylenol. Since being in the hospital patient's been on IV narcotics and IV anti-inflammatories. I would recommend utilizing a longer acting medication like [place], also recommending patient restart his tramadol to take in between the [place]. Could also consider a Lyrica taper for the next 2 weeks. After discussion with patient and his , they did have a call in to discuss the case with the surgeon. I recommend following up with that MANUELITO for his recommendations DVT prophylaxis, continue subcu medication while in hospital, recommend aspirin 81 mg twice a day after discharge Weight-bear as tolerated with walker Icing and elevating techniques discussed, discussed the importance of having ice constantly on the knee and elevating the knee if he is can to be laying flat Other medical specialty recommendations appreciated Orthopedically patient remains stable, would recommend better pain control and discharge to home with home health care and follow-up with his primary surgeon in the next 1 to 3 days. Time with Patient: Less than 30
[2024-05-01 08:40] LABS: Basophils # (A) 0.04 X 10*3/uL (0.00-0.10); Basophils % (A) 0.5 %; Eosinophils # (A) 0.47 X 10*3/uL (0.04-0.35); Eosinophils % (A) 5.3 %; HCT 25.6 % (39.6-50.0); HGB 8.3 g/dL (13.0-17.0); Lymphocytes # (A) 0.82 X 10*3/uL (0.90-5.00); Lymphocytes % (A) 9.3 %; MCH 30.2 pg (27.0-32.0); MCHC 32.4 g/dL (32.0-37.0); MCV 93.1 FL (80.0-97.0); Mean Platelet Volume 10.4 FL (9.5-12.2); Monocytes # (A) 1.08 X 10*3/uL (0.20-1.00); Monocytes % (A) 12.2 %; NRBC Per 100 WBC 0 X 10*3/uL (0.00-0.01); Neutrophils # (A) 6.36 X 10*3/uL (1.80-7.70); Platelet Count 305 X 10*3/uL (140-440); RBC 2.75 X 10*6/uL (4.40-5.60); RDW 14.6 % (11.5-14.5); WBC 8.83 X 10*3/uL (4.50-10.00)
[2024-05-01 08:46] LABS: Blood Urea Nitrogen 26.4 mg/dL (9.0-27.0); Calcium 8.2 mg/dL (8.7-10.3); Carbon Dioxide 22.9 mmol/L (21.6-31.8); Chloride 107 mmol/L (96-109); Glucose 125 mg/dL (70-110); Potassium 4.5 mmol/L (3.5-5.5); Sodium 139 mmol/L (135-145)
[2024-05-01] MEDS: HYDROcodone/APAP 5-325MG 1 EACH TAB PO PRN (20:07)
--- NOTE | 2024-05-01 21:00 | P.PN ---
Subjective Progress Note Date: 05/01/24 Patient is a 63-year-old male with a known history of hypertension, hyperlipidemia and chronic knee pain and history of gout. Patient had right total knee arthroplasty on last at [facility]. Patient has been having right knee pain since after surgery. He was discharged home with home care and home PT. Patient has been having increased pain, subjective fevers and cold sweats and chills. He also noticed to have increased redness and swelling of the right knee and lower extremity. Patient tried to wean off his pain medications at home initially but symptoms could not be controlled. Patient was seen by home visiting nurse and concern for increased redness and swelling and recommended to go to ER. Denied any soaking or discharge from the dressing. No complaints of chest pain or shortness of breath. No cough or sputum production. On admission blood pressure 116/65 pulse 82 respiration 18 and pulse ox 92% on room air. Patient has been afebrile. X-ray of the right knee showed prepatellar soft tissue edema with gas in the suprapatellar recess. Correlate for signs and symptoms of infection. Status post total knee arthroplasty changes with hardware intact and appropriate alignment. No fractures identified. Right lower EXTR duplex scan is negative for DVT. Laboratory data showed WBC 10.3 hemoglobin 10.7 MCV 91.5 platelets 329 neutrophils 8.8 Sodium 137 potassium 3.8 chloride 101 bicarb is 25 BUN 25 creatinine 1.04 and blood sugar is 115 and calcium 9.3 lactic acid 1.6 liver enzymes are not elevated. Patient was started on antibiotics in the form of cefazolin in the ER. 05/01/2024 Patient is resting in the bed. Awake alert and oriented x 3. Right knee pain is much improved today. Swelling is improving as well. Patient has been afebrile. No fever no chills. No cough or sputum production. Patient was seen by orthopedic surgery. Recommended to continue with pain management. Patient remains on antibiotics in the form of cefazolin. Blood cultures preliminary negative so far. Laboratory data showed WBC 8.8 hemoglobin 8.3 and platelets 305. Remaining electrolyte panel within normal limits. Current medications reviewed. Objective - Vital Signs Vital signs: Vital Signs Temp 98.0 F 05/01/24 14:01 Pulse 82 05/01/24 14:01 Resp 16 05/01/24 14:01 BP 126/68 12/19/24 14:01 Pulse Ox 100 05/01/24 14:01 FiO2 Intake & Output 05/01/24 05/01/24 05/02/24 06:59 18:59 06:59 Intake Total 800 Balance 800 Intake: Oral 800 Other: Voiding Method Toilet Toilet # Voids 2 2 # Bowel Movements 1 - Exam PHYSICAL EXAMINATION: Patient is lying in the bed mild distress due to pain, awake alert and oriented.. HEENT: Normocephalic. Neck is supple. Pupils reactive. Nostrils clear. Oral cavity is moist. Neck reveals no JVD, carotid bruits, or thyromegaly. CHEST EXAMINATION: Trachea is central. Symmetrical expansion. Lung dobson clear to auscultation and percussion. CARDIAC: Normal S1, S2 with no gallops. No murmurs ABDOMEN: Soft. Bowel sounds normal. No organomegaly. No abdominal bruits. Extremities: Right lower extremity swelling.. No clubbing or cyanosis Neurologically awake, alert, oriented x3 with well-coordinated movements. No focal deficits noted Skin: No rash or skin lesions. Psychiatric: Coperative. Nonsuicidal, anxious. Musculoskeletal: Right knee swelling and redness around the surgical site has improved today.. Mild tenderness. Bandage intact. - Labs CBC & Chem 7: 05/01/24 02:12 05/01/24 02:12 Labs: Abnormal Lab Results - Last 24 Hours (Table) 05/01/24 05/01/24 Range/Units 02:12 02:12 RBC 2.75 L (4.40-5.60) X 10*6/uL Hgb 8.3 L (13.0-17.0) g/dL Hct 25.6 L (39.6-50.0) % RDW 14.6 H (11.5-14.5) % Immature Gran # 0.06 H (0.00-0.04) X 10*3/uL Lymphocytes # 0.82 L (0.90-5.00) X 10*3/uL Monocytes # 1.08 H (0.20-1.00) X 10*3/uL Eosinophils # 0.47 H (0.04-0.35) X 10*3/uL BUN/Creatinine Ratio 26.40 H (12.00-20.00) Ratio Glucose 125 H (70-110) mg/dL Calcium 8.2 L (8.7-10.3) mg/dL Microbiology - Last 24 Hours (Table) 04/29/24 14:20 Blood Culture - Preliminary Blood Assessment and Plan Assessment: Worsening right knee pain and swelling status post total arthroplasty on 04/24/2024 at [facility]. Likely due to joint effusion with soft tissue edema/minimal cellulitis. Septic arthritis cannot be ruled out at this time. Otherwise patient has been afebrile and has no leukocytosis. Chronic right knee pain Hypertension Hyperlipidemia History of gout Normocytic anemia with hemoglobin 10.7 on admission DVT prophylaxis heparin subcu Plan: Patient will be continued on IV hydration with normal saline at 75 cc per hour. Continue with cefazolin. Follow-up blood cultures. Monitor H&H Continue with leg elevation and pain management with Dilaudid, Toradol and Tylenol. Blood pressure medications on hold. Start back on home medications. Pain management service and orthopedic surgery will be consulted. Follow-up closely. Discussed with the patient his family at bedside in detail. Time with Patient: Greater than 30
[2024-05-01] MEDS: SODIUM CHLORIDE 0.9% 1,000 ML IV SCH (23:52)
[2024-05-02 07:26] VITALS: RESP 18; TEMP 97.7
[2024-05-02 09:11] LABS: Basophils # (A) 0.04 X 10*3/uL (0.00-0.10); Basophils % (A) 0.5 %; Eosinophils # (A) 0.53 X 10*3/uL (0.04-0.35); Eosinophils % (A) 6.2 %; HCT 24.6 % (39.6-50.0); HGB 7.9 g/dL (13.0-17.0); Lymphocytes # (A) 0.89 X 10*3/uL (0.90-5.00); Lymphocytes % (A) 10.5 %; MCH 29.9 pg (27.0-32.0); MCHC 32.1 g/dL (32.0-37.0); MCV 93.2 FL (80.0-97.0); Mean Platelet Volume 10.1 FL (9.5-12.2); Monocytes # (A) 0.97 X 10*3/uL (0.20-1.00); Monocytes % (A) 11.4 %; NRBC Per 100 WBC 0 X 10*3/uL (0.00-0.01); Neutrophils # (A) 6.01 X 10*3/uL (1.80-7.70); Neutrophils % (A) 70.6 %; Platelet Count 341 X 10*3/uL (140-440); RBC 2.64 X 10*6/uL (4.40-5.60); RDW 14.6 % (11.5-14.5); WBC 8.51 X 10*3/uL (4.50-10.00)
[2024-05-02 09:16] LABS: Blood Urea Nitrogen 21.6 mg/dL (9.0-27.0); Carbon Dioxide 22.9 mmol/L (21.6-31.8); Chloride 108 mmol/L (96-109); Glucose 120 mg/dL (70-110); Potassium 4.5 mmol/L (3.5-5.5); Sodium 139 mmol/L (135-145)
[2024-05-02 09:17] LABS: Calcium 8.4 mg/dL (8.7-10.3)
[2024-05-02 15:05] VITALS: BP 142/79; PULSE 83
== END 2024-05-02 16:27 | disposition home or self-care (01) ==
LOC: EC 13:28 → INTOOBSV 16:34 → 4SSUR 16:34
PROVIDERS: ADMIT Hospitalist; ATTEND Hospitalist
DX: M25.561 Pain in right knee (principal); G89.18 Other acute postprocedural pain; D64.9 Anemia, unspecified; E78.5 Hyperlipidemia, unspecified; G89.29 Other chronic pain; I10 Essential (primary) hypertension; M10.9 Gout, unspecified; M79.89 Other specified soft tissue disorders; Z79.1 Long term (current) use of non-steroidal anti-inflammatories (NSAID); Z79.899 Other long term (current) drug therapy; Z96.651 Presence of right artificial knee joint; Z79.82 Long term (current) use of aspirin
CPT/HCPCS: 96376 ×3; 96361 ×2; 96366 ×4; 96367; 96372 ×3; 96365; 96375; 99285; 36415; 97116 ×2; 97161; 97535; 97166; 80053 ×2; 80048 ×2; 83605; 83690; 83735; 84100; 85025 ×4; 87040; 73560; 93971; G0378 ×4; J1644 ×3; J0690 ×4; J1171 ×4; J0131; J1885 ×4